=== PATIENT | female | born 1970 | race Caucasian/White ===

== ENCOUNTER 2016-07-17 06:20 | Emergency (ER) | payer BC, OTHER ==
[2016-07-17 06:44] VITALS: BP 107/63
--- NOTE | 2016-07-17 07:06 | EDM.PDOC ---
ED HPI GENERAL MEDICAL PROBLEM - General Chief Complaint: Upper Extremity Injury/Pain Stated Complaint: Fall, right wrist pain Time Seen by Provider: 07/17/16 06:50 Source of Information: Reports: Patient History Limitations: Reports: No Limitations - History of Present Illness INITIAL COMMENTS - FREE TEXT/NARRATIVE: Patient tripped over a low board in a doorway last night and fell on an outstretched hand. Is complaining of pain in right lateral wrist with movement Onset: Sudden, Other (incident happened last night) Onset Date: 07/16/16 Onset Time: 22:00 Duration: Hour(s): Location: Reports: Upper Extremity, Right Quality: Reports: Ache Severity: Moderate Improves with: Reports: Other (not moving) Context: Reports: Other (trip over object) Associated Symptoms: Reports: No Other Symptoms Right wrist Pain Score (Numeric/FACES): 7 - Related Data Allergies Allergy/AdvReac Type Severity Reaction Status Date / Time Penicillins Allergy Hives Verified 07/17/16 06:44 Home Meds: Home Meds Escitalopram [Lexapro] 20 mg PO DAILY 07/17/16 [History] Review of Systems - Review of Systems Review Of Systems: See Below Constitutional: Reports: No Symptoms Eyes: Reports: No Symptoms Ears: Reports: No Symptoms Nose: Reports: No Symptoms, Other (Pt hit nose when she fell but not having any pain) Mouth/Throat: Reports: No Symptoms Respiratory: Reports: No Symptoms Cardiovascular: Reports: No Symptoms GI/Abdominal: Reports: No Symptoms Genitourinary: Reports: No Symptoms Musculoskeletal: Reports: Hand Pain Skin: Reports: No Symptoms Neurological: Reports: No Symptoms Psychiatric: Reports: No Symptoms ED EXAM, GENERAL - Physical Exam Exam: See Below Exam Limited By: No Limitations General Appearance: Alert, WD/WN, No Apparent Distress Nose: Other (mild edema and very small red spot but no abrasions over bridge of nose, non tender with palpation) Throat/Mouth: Normal Inspection Head: Atraumatic Neck: Normal Inspection Respiratory/Chest: No Respiratory Distress Peripheral Pulses: 4+: Radial (L), Radial (R) Extremities: Joint Swelling, Limited Range of Motion, Other (fingers of right hand swollen, stiff with movement. point tenderness along lateral wrist with movement and palpation, CMS otherwise intact. other joints within normal limits ) Skin Exam: Warm, Dry Course - Vital Signs Text/Narrative:: Patient examined and x-rays done. Xray right wrist and elbow negative for fracture. Patient fitted with thumb spica splint and discharged with instructions for further care. Last Recorded V/S: Last Vital Signs Temp 36.1 C 07/17/16 06:30 Pulse 62 07/17/16 06:30 Resp 16 07/17/16 06:30 BP 107/63 07/17/16 06:30 Pulse Ox 98 07/17/16 06:30 - Orders/Labs/Meds Orders: Active Orders 24 hr Category Date Time Status Elbow Min 3V Rt [CR] Stat Exams 07/17/16 07:13 Taken Wrist Comp Min 3V Rt [CR] Stat Exams 07/17/16 06:59 Taken - Radiology Interpretation Free Text/Narrative:: Wrist and elbow results are negative for fracture per radiology. Departure - Departure Time of Disposition: 08:47 Disposition: Home, Self-Care 01 Condition: good Clinical Impression: Right wrist sprain Qualifiers: Encounter type: initial encounter Qualified Code(s): S63.501A - Unspecified sprain of right wrist, initial encounter - Discharge Information Instructions: Wrist Sprain Referrals: Janeth Michelle DO [Primary Care Provider] - Forms: ED Department Discharge Additional Instructions: Wear Spint for comfort. Follow up with your regular doctor if pain persists. Tylenol or ibuprofen for pain if needed. - My Orders Last 24 Hours: My Active Orders 07/17/16 06:59 Wrist Comp Min 3V Rt [CR] Stat 07/17/16 07:13 Elbow Min 3V Rt [CR] Stat - Assessment/Plan Last 24 Hours: My Active Orders 07/17/16 06:59 Wrist Comp Min 3V Rt [CR] Stat 07/17/16 07:13 Elbow Min 3V Rt [CR] Stat
== END 2016-07-17 08:46 | disposition home or self-care (01) ==
LOC: VM.ED 06:20
DX: S63.501A Unspecified sprain of right wrist, initial encounter (principal); Z79.899 Other long term (current) drug therapy; Z88.0 Allergy status to penicillin; W01.0XXA Fall on same level from slipping, tripping and stumbling without subsequent striking against object, initial encounter
CPT/HCPCS: 73080-RT; 73110-RT; 99283

== ENCOUNTER 2021-12-28 10:59 | Day surgery (SDC) | payer BC ==
[~2021-12-28 10:59] MED LIST: Lactated Ringers 1,000 ML IV SCH
[2021-12-28] MEDS ORDERED: Propofol 200 MG/20 ML SDV ONE ×3 (12:14→12:50)
[2021-12-28] MEDS ORDERED: fentaNYL 100 MCG/2 ML SDV ONE (12:14)
[2021-12-28 13:30] VITALS: BP 128/75; PULSE 86
== END 2021-12-28 14:15 | disposition home or self-care (01) ==
LOC: VM.SDS 10:59
PROVIDERS: ATTEND Surgery
DX: Z12.11 Encounter for screening for malignant neoplasm of colon (principal); K63.5 Polyp of colon; I10 Essential (primary) hypertension; F32.A Depression, unspecified; E53.9 Vitamin B deficiency, unspecified; E78.00 Pure hypercholesterolemia, unspecified; F17.210 Nicotine dependence, cigarettes, uncomplicated; I48.91 Unspecified atrial fibrillation; Z80.0 Family history of malignant neoplasm of digestive organs; Z88.0 Allergy status to penicillin; Z98.890 Other specified postprocedural states; Z79.899 Other long term (current) drug therapy
CPT/HCPCS: 00812; 45384; J2704; J3010; J7120

== ENCOUNTER 2023-06-04 22:34 | Emergency (ER) | payer BC ==
[2023-06-04] MEDS: Diazepam 5 MG Tab PO ONE (23:01)
[2023-06-04 23:39] VITALS: BP 125/66; PULSE 104
== END 2023-06-04 23:34 | disposition home or self-care (01) ==
LOC: VM.ED 22:34
DX: R00.2 Palpitations (principal); R00.0 Tachycardia, unspecified; E78.00 Pure hypercholesterolemia, unspecified; I10 Essential (primary) hypertension; Z88.0 Allergy status to penicillin; Z79.899 Other long term (current) drug therapy
CPT/HCPCS: 93005; 99284; A9270; 93010